=== PATIENT | female | born 1995 | race Caucasian/White ===

== ENCOUNTER 2019-03-06 08:18 | Inpatient (IN) | payer OTHER ==
[2019-03-06] MEDS ORDERED: BUTORPHANOL 2 MG INJ IV (08:30)
[2019-03-06] MEDS ORDERED: METHYLERGONOVINE 0.2 MG INJ IM ×2 (08:30→12:30)
[2019-03-06] MEDS ORDERED: OXYTOCIN 30 UNITS/LR 500 ML IV ×2 (08:30→12:30)
[2019-03-06] MEDS ORDERED: MISOPROSTOL 200 MCG TAB PR ×2 (08:30→12:30)
[2019-03-06] MEDS ORDERED: LIDOCAINE 1% (MPF) 30 ML INJ INJ (08:30)
[2019-03-06] MEDS ORDERED: CARBOPROST 250 MCG INJ IM ×2 (08:30→12:30)
[2019-03-06] MEDS: LACTATED RINGER'S 1,000 ML IV ×2 (08:51→09:05)
[2019-03-06] MEDS: AMPICILLIN 2 GM/NS (PMX) 100 ML IV (08:51)
[2019-03-06 08:58] LABS: ADD MAN DIFF? NO
[2019-03-06 09:02] LABS: BASOPHIL # 0.1 10^3/ul (0.0-0.1); BASOPHILS % 0.4 % (0.0-2.0); EOSINOPHILS # 0.1 10^3/ul (0.0-0.5); EOSINOPHILS % 0.6 % (0.0-7.0); HEMATOCRIT 33.7 % (37.0-47.0); HEMOGLOBIN 11.5 g/dl (12.0-16.0); LYMPHOCYTES # 2.1 10^3/ul (0.8-2.9); LYMPHOCYTES % 18.6 % (15.0-51.0); MEAN CORPUSCULAR HEMOGLOBIN 27.4 pg (29.0-33.0); MEAN CORPUSCULAR HGB CONC 34.1 g/dl (32.0-37.0); MEAN CORPUSCULAR VOLUME 80.4 fl (82.0-101.0); MEAN PLATELET VOLUME 11.7 fl (7.4-10.4); MONOCYTE # 0.4 10^3/ul (0.3-0.9); MONOCYTES % 3.8 % (0.0-11.0); NEUTROPHIL # 8.5 10^3/ul (1.6-7.5); NEUTROPHILS % 75.9 % (39.0-77.0); PLATELET COUNT 240 10^3/UL (140-415); RED BLOOD COUNT 4.19 10^6/ul (4.20-5.40); RED CELL DISTRIBUTION WIDTH 13.4 % (11.5-14.5)
[2019-03-06 09:02] LABS: WHITE BLOOD COUNT 11.2 10^3/ul (4.8-10.8)
[2019-03-06 09:21] LABS: PROTIME 12.3 Sec (11.9-14.9)
[2019-03-06 09:22] LABS: PARTIAL THROMBOPLASTIN TIME 27.4 Sec (23.0-35.0)
[2019-03-06 09:50] LABS: HEPATITIS B SURFACE ANTIGEN NEGATIVE (NEGATIVE)
[2019-03-06] MEDS ORDERED: NALOXONE (0.4 MG/ML) INJ IV (10:00)
[2019-03-06] MEDS ORDERED: FENTAnyl 2MCG/ML-ROPIV 0.2% 100 ML BAG EPI (10:00)
[2019-03-06 10:01] LABS: HIV 1&2 ANTIBODY NEGATIVE (NEGATIVE)
[2019-03-06] MEDS: OXYTOCIN 30 UNITS/LR 500 ML IV ×3 (10:02→12:15)
[2019-03-06 10:28] LABS: ADD UMIC YES; UR ASCORBIC ACID NEGATIVE (NEGATIVE); UR BILIRUBIN (Dip) NEGATIVE (NEGATIVE); UR BLOOD (Dip) 2+ mg/dL (NEGATIVE); UR CLARITY CLEAR (CLEAR); UR COLOR YELLOW (YELLOW); UR GLUCOSE (Dip) NEGATIVE (NEGATIVE); UR KETONES (Dip) NEGATIVE (NEGATIVE); UR LEUKOCYTE ESTERASE (Dip) NEGATIVE Leu/ul (NEGATIVE); UR NITRITE (Dip) NEGATIVE (NEGATIVE); UR RBC 6 /HPF (0-5); UR SPECIFIC GRAVITY (Dip) 1.029 (1.003-1.030); UR SQUAMOUS EPITHELIAL CELL FEW /HPF (FEW); UR TOTAL PROTEIN (Dip) 1+ mg/dl (NEGATIVE); UR UROBILINOGEN (Dip) NEGATIVE (NEGATIVE); UR WBC 0 /HPF (0-5)
[2019-03-06 11:07] LABS: BARBITURATES Negative (NEGATIVE); BENZODIAZEPINES Negative (NEGATIVE); CANNABINOIDS Negative (NEGATIVE); COCAINE Negative (NEGATIVE); OPIATES Negative (NEGATIVE)
[2019-03-06 11:11] LABS: AMPHETAMINE/METHAMPHETAMINE POSITIVE (NEGATIVE)
[2019-03-06] MEDS: IBUPROFEN 600 MG TAB PO ×4 (11:52→23:32)
[2019-03-06] MEDS ORDERED: WITCH HAZEL/GLYCERIN PAD PR (12:30)
[2019-03-06] MEDS ORDERED: LANOLIN HPA 1 PKT TOP (12:30)
[2019-03-06] MEDS ORDERED: AMPICILLIN 1 GM/NS (PMX) 50 ML IV (12:30)
[2019-03-06] MEDS ORDERED: ZOLPIDEM 5 MG TAB PO (12:30)
[2019-03-06] MEDS ORDERED: BENZOCAINE 20% 56 ML SPRAY TOP (12:30)
[2019-03-06] MEDS ORDERED: NACL 0.9% 3 ML SYG IV (12:30)
[2019-03-06] MEDS ORDERED: SENNA/DOCUSATE NA (8.6MG/50MG) TAB PO (12:30)
[2019-03-06] MEDS: SENNA/DOCUSATE NA (8.6MG/50MG) TAB PO (20:59)
[2019-03-06 21:46] LABS: RAPID PLASMA REAGIN NONREACTIVE (NR)
[2019-03-07] MEDS: OXYCODONE/ASPIRIN (4.88/325) TAB PO (02:19)
[2019-03-07] MEDS: IBUPROFEN 600 MG TAB PO ×3 (05:33→18:13)
[2019-03-07 08:24] LABS: ADD MAN DIFF? NO
[2019-03-07 08:26] LABS: WHITE BLOOD COUNT 8.2 10^3/ul (4.8-10.8)
[2019-03-07 08:26] LABS: BASOPHILS % 0.4 % (0.0-2.0); EOSINOPHILS # 0.1 10^3/ul (0.0-0.5); EOSINOPHILS % 1.3 % (0.0-7.0); HEMATOCRIT 31.6 % (37.0-47.0); HEMOGLOBIN 10.7 g/dl (12.0-16.0); LYMPHOCYTES # 2.8 10^3/ul (0.8-2.9); LYMPHOCYTES % 33.6 % (15.0-51.0); MEAN CORPUSCULAR HEMOGLOBIN 27.3 pg (29.0-33.0); MEAN CORPUSCULAR HGB CONC 33.9 g/dl (32.0-37.0); MEAN CORPUSCULAR VOLUME 80.6 fl (82.0-101.0); MEAN PLATELET VOLUME 11.6 fl (7.4-10.4); MONOCYTE # 0.4 10^3/ul (0.3-0.9); MONOCYTES % 4.5 % (0.0-11.0); NEUTROPHIL # 4.9 10^3/ul (1.6-7.5); NEUTROPHILS % 59.2 % (39.0-77.0); PLATELET COUNT 247 10^3/UL (140-415); RED BLOOD COUNT 3.92 10^6/ul (4.20-5.40)
[2019-03-07] MEDS: SENNA/DOCUSATE NA (8.6MG/50MG) TAB PO ×2 (09:19→21:16)
[2019-03-07] MEDS: FERROUS SULFATE (EC) 325 MG TAB PO (21:19)
[2019-03-08] MEDS: IBUPROFEN 600 MG TAB PO ×4 (05:28→17:38)
[2019-03-08 08:37] LABS: ADD MAN DIFF? NO
[2019-03-08 08:46] LABS: WHITE BLOOD COUNT 8.8 10^3/ul (4.8-10.8)
[2019-03-08 08:46] LABS: BASOPHILS % 0.5 % (0.0-2.0); EOSINOPHILS # 0.1 10^3/ul (0.0-0.5); HEMOGLOBIN 10.6 g/dl (12.0-16.0); LYMPHOCYTES # 2.1 10^3/ul (0.8-2.9); LYMPHOCYTES % 23.4 % (15.0-51.0); MEAN CORPUSCULAR HEMOGLOBIN 27.2 pg (29.0-33.0); MEAN CORPUSCULAR HGB CONC 33.1 g/dl (32.0-37.0); MEAN CORPUSCULAR VOLUME 82.1 fl (82.0-101.0); MEAN PLATELET VOLUME 11.3 fl (7.4-10.4); MONOCYTE # 0.4 10^3/ul (0.3-0.9); MONOCYTES % 4.1 % (0.0-11.0); NEUTROPHIL # 6.2 10^3/ul (1.6-7.5); NEUTROPHILS % 70.1 % (39.0-77.0); PLATELET COUNT 266 10^3/UL (140-415); RED CELL DISTRIBUTION WIDTH 14.1 % (11.5-14.5)
[2019-03-08] MEDS: FERROUS SULFATE (EC) 325 MG TAB PO (09:53)
[2019-03-08] MEDS: SENNA/DOCUSATE NA (8.6MG/50MG) TAB PO (09:53)
[2019-03-08] MEDS: DIPHTH/TET/ACEL PERTUSS (ADULT) 0.5 ML VIAL IM* (09:54)
[2019-03-08 13:47] LABS: RUBELLA ANTIBODY - IGM <20.00 AU/mL
[2019-03-08 20:52] LABS: RUBELLA ANTIBODY - IGG 1.89 index
== END 2019-03-08 20:45 | disposition home or self-care (01) | DRG 807 ==
LOC: OBT 08:18 → L-D 08:18 → OBT 08:23 → L-D 08:23 → PP1 12:13
PROVIDERS: Obstetrics & Gynecology
PROC: 10E0XZZ Delivery of Products of Conception, External Approach (ICD-10-PCS; principal; 2019-03-06)
DX: O99.323 Drug use complicating pregnancy, third trimester (principal); Z37.0 Single live birth; Z3A.39 39 weeks gestation of pregnancy
CPT/HCPCS: 62322; 80307; 81001; 85025; 85610; 85730; 86592; 86703; 86762; 86850; 86900; 86901; 87340; 88307; 90715; 99464